=== PATIENT | female | born 1975 | race Two or more races ===

== ENCOUNTER 2025-08-05 17:09 | Emergency (ER) | payer MEDICAID, OTHER ==
[~2025-08-05] VITALS: Ht 167.6 cm; Wt 84.1 kg
[2025-08-05 19:41] LABS: Hematocrit 32.0 % (36.0-46.0); Hemoglobin 10.0 g/dL (12.2-16.2); Mean Corpuscular Hemoglobin 22.6 pg (28.0-32.0); Mean Corpuscular Volume 72.0 fL (80.0-100.0); Nucleated Red Blood Cells % 0.0 %
[2025-08-05 19:55] LABS: Alanine Aminotransferase 13 U/L (7-40); Albumin 4.5 g/dL (3.2-4.8); Alkaline Phosphatase 78 U/L (46-116); Anion Gap 9 (5-15); BUN/Creatinine Ratio 25.5 (10.0-20.0); Bilirubin, Total 0.3 mg/dL (0.2-1.0); Calcium 9.4 mg/dL (8.7-10.4); Carbon Dioxide 26 mmol/L (20-31); Chloride 106 mmol/L (98-107); Glucose 88 mg/dL (74-106); Potassium 4.2 mmol/L (3.5-5.1); Sodium 141 mmol/L (136-145); Total Protein 7.0 g/dL (5.7-8.2)
[2025-08-05 19:56] LABS: Blood Urea Nitrogen 24 mg/dL (9-23)
[2025-08-05 19:59] LABS: INR 0.92 (0.9-1.15); Partial Thromboplastin Time 24.3 SEC (24.5-34.5); Prothrombin Time 9.8 sec (9.3-11.8)
--- NOTE | 2025-08-05 20:01 | ED.PDOC ---
[facility] HPI Comments 49-year-old female presents with spouse for chief complaint of abnormal vaginal bleeding for the past 3 days. Patient is going through 3 pads an hour my currently. Patient reports on already having her menstrual., earlier, this month. Denies any burning recent events or history besides from some emotional stressors, currently. She denies being , currently. She also denies having any abdominal pain, nausea, vomiting, urinary symptoms, lightheadedness, or further acute symptoms at this time. Chief Complaint: Vaginal Bleed Time Seen by MD: 19:10 Reviewed Notes: Nurses Notes Allergies: Coded Allergies: NO KNOWN ALLERGIES (Unverified , 08/05/25) Home Meds Active Scripts Ferrous Sulfate (FERROUS SULFATE) 325 Mg Tb, 1 TAB PO DAILY for 30 Days, #30 TAB 3 Refills Prov:YULI BURNETTE MD 08/05/25 Medroxyprogesterone Acetate (PROVERA) 5 Mg Tab, 1 TAB PO DAILY for 10 Days, #10 TAB 1 Refill Prov:YULI BURNETTE MD 08/05/25 Information Source: Patient Mode of Arrival: Ambulatory Timing: Days Prehospital treatment: None Past Medical History PAST MEDICAL HISTORY: Denies Surgical History: Denies all surgeries [employer] [facility] History: No Pertinent [employer] [facility] History Social History Smoker: Non-Smoker Alcohol: Denies ETOH Use Drugs: Denies Drug Use Lives In: Home All Other Systems: Reviewed and Negative (Comprehensive review of systems are negative unless otherwise stated in HPI) Physical Exam General Appearance: No Apparent Distress, Normal HEENT: Normal ENT Inspection, Pharynx Normal, TMs Normal Neck: Full Range of Motion, Non-Tender, Normal, Normal Inspection Respiratory: Chest Non-Tender, Lungs Clear, No Accessory Muscle Use, No Respiratory Distress, Normal Breath Sounds Cardiovascular: No Edema, No JVD, No Murmur, No Gallop, Normal Peripheral Pulses, Regular Rate/Rhythm Breast Exam: Deferred Gastrointestinal: No Organomegaly, Non Tender, No Pulsatile Mass, Normal Bowel Sounds, Soft Genitalia: Deferred Pelvic: Deferred Rectal: Deferred Extremities: No calf tenderness, Normal capillary refill, Normal inspection, Normal range of motion, Non-tender, No pedal edema Musculoskeletal : Apperance: Normal Neurologic: Alert, 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 Was a procedure done?: No Differential Diagnosis ([employer] [facility]W[employer]) Vaginal Bleeding: Blood Loss Anemia, Ectopic , Hormonal, Menorrhagia, Menometrorrhagia, Menstrual Bleeding, PID, UTI X-Ray, Labs, Meds, VS Vital Signs Date Time Temp Pulse Resp B/P (MAP) Pulse Ox O2 Delivery O2 Flow Rate FiO2 08/05/25 22:07 Room Air* 0 21 08/05/25 20:08 97.7 93 16 142/100 (114) 100 97.7 08/05/25 17:12 Room Air* 0 21 08/05/25 17:12 97.5 86 17 161/105 100 97.5 Lab Test 08/05/25 19:33 Range/Units White Blood Count 5.4 4.4-10.8 10^3/uL Red Blood Count 4.45 4.0-5.20 10^6/uL Hemoglobin 10.0 L 12.2-16.2 g/dL Hematocrit 32.0 L 36.0-46.0 % Mean Corpuscular Volume 72.0 L 80.0-100.0 fL Mean Corpuscular Hemoglobin 22.6 L 28.0-32.0 pg Mean Corpuscular Hemoglobin Concent 31.4 L 32.0-36.0 g/dL Red Cell Distribution Width 17.6 H 11.8-14.3 % Platelet Count 414 140-450 10^3/uL Mean Platelet Volume 9.1 6.9-10.8 fL Neutrophils (%) (Auto) 58.8 37.0-80.0 % Lymphocytes (%) (Auto) 29.8 10.0-50.0 % Monocytes (%) (Auto) 6.9 0.0-12.0 % Eosinophils (%) (Auto) 3.2 0.0-7.0 % Basophils (%) (Auto) 1.3 0.0-2.0 % Neutrophils # (Auto) 3.2 1.6-8.6 10 ^3/uL Lymphocytes # (Auto) 1.6 0.4-5.4 10 ^3/uL Monocytes # (Auto) 0.4 0-1.3 10 ^3/uL Eosinophils # (Auto) 0.2 0-0.8 10 ^3/uL Basophils # (Auto) 0.1 0-0.2 10 ^3/uL Nucleated Red Blood Cells 0.0 % Prothrombin Time 9.8 9.3-11.8 sec Prothrombin Time INR 0.92 0.9-1.15 Activated Partial Thromboplast Time 24.3 L 24.5-34.5 SEC Sodium Level 141 136-145 mmol/L Potassium Level 4.2 3.5-5.1 mmol/L Chloride Level 106 98-107 mmol/L Carbon Dioxide Level 26 20-31 mmol/L Anion Gap 9 5-15 Blood Urea Nitrogen 24 H 9-23 mg/dL Creatinine 0.94 0.550-1.02 mg/dL Glomerular Filtration Rate Calc 75 >90 mL/min BUN/Creatinine Ratio 25.5 H 10.0-20.0 Serum Glucose 88 74-106 mg/dL Calcium Level 9.4 8.7-10.4 mg/dL Total Bilirubin 0.3 0.2-1.0 mg/dL Aspartate Amino Transferase (AST) 19 13-40 U/L Alanine Aminotransferase (ALT) 13 7-40 U/L Alkaline Phosphatase 78 46-116 U/L Total Protein 7.0 5.7-8.2 g/dL Albumin 4.5 3.2-4.8 g/dL Time of 1ST Reevaluation: 19:40 Reevaluation 1ST: Unchanged Patient Education/Counseling: Diagnosis, Treatment, Need For Follow Up Family Education/Counseling: Diagnosis, Treatment, Need For Follow Up Departure 1 Departure Time of Disposition: 21:30 Impression: Primary Impression: Dysfunctional uterine bleeding Disposition: HOME / SELF CARE / HOMELESS Condition: Stable e-Prescriptions Ferrous Sulfate (FERROUS SULFATE) 325 Mg Tb 1 TAB PO DAILY for 30 Days, #30 TAB 3 Refills Prov: YULI BURNETTE MD 08/05/25 Medroxyprogesterone Acetate (PROVERA) 5 Mg Tab 1 TAB PO DAILY for 10 Days, #10 TAB 1 Refill Prov: YULI BURNETTE MD 08/05/25 Discharged With: Spouse Critical Care Note Critical Care Time?: No Stability Stability form required: No Heart Score Heart Score: Heart Score Response (Comments) Value History N/A 0 EKG N/A 0 Age N/A 0 Risk Factors N/A 0 Troponin N/A 0 Total 0 I personally scribed for YULI BURNETTE MD ([email or web address]) on 08/05/25 at 20:01. Electronically submitted by Ki Juarez ([email or web address]). YULI BURNETTE MD Aug 05, 2025 20:01
[2025-08-05 20:08] VITALS: BP 142/100; PULSE 93; RESP 16; TEMP 97.7; O2SAT 100
[2025-08-05] MEDS ORDERED: MEDR5TAB28 PO (20:41)
[2025-08-05] MEDS ORDERED: FER325T PO (20:42)
== END 2025-08-05 22:08 | disposition home or self-care (01) ==
LOC: ER 17:09
DX: N93.8 Other specified abnormal uterine and vaginal bleeding (principal); Z79.899 Other long term (current) drug therapy; Z86.2 Personal history of diseases of the blood and blood-forming organs and certain disorders involving the immune mechanism
CPT/HCPCS: 36415; 80053; 85025; 85610; 85730